=== PATIENT | male | born 1980 | race Caucasian/White ===

== ENCOUNTER 2022-03-31 11:09 | Emergency (ER) | payer SELFPAY ==
[2022-03-31 11:46] VITALS: BP 138/97; PULSE 109; RESP 18; TEMP 99; BMI 29.2
[2022-03-31] MEDS ORDERED: ACETAMINOPHEN 500 MG TABLET (FP) PO ONE (12:53)
[2022-03-31] MEDS ORDERED: CYCLOBENZAPRINE HCL 5 MG TABLET PO ONE (12:55)
[2022-03-31] MEDS ORDERED: CYCLOBENZAPRINE HCL 10 MG TABLET (FP) ONE (13:05)
[2022-03-31] MEDS ORDERED: ACETAMINOPHEN 325 MG TABLET (FP) ONE (13:05)
[2022-03-31] MEDS ORDERED: diazePAM 5 MG TABLET PO ONE (13:38)
[2022-03-31] MEDS ORDERED: KETOROLAC TROMETHAMINE 30 MG/1 ML VIAL IM ONE (13:38)
[2022-03-31] MEDS ORDERED: KETOROLAC TROMETHAMINE 15 MG/ML VIAL ONE (13:40)
[2022-03-31] MEDS ORDERED: diazePAM 5 MG TABLET ONE (13:40)
== END 2022-03-31 15:20 | disposition home or self-care (01) ==
LOC: JERFT 11:09
PROC: 3E0233Z Introduction of Anti-inflammatory into Muscle, Percutaneous Approach (ICD-10-PCS; principal; 2022-03-31)
DX: M76.00 Gluteal tendinitis, unspecified hip (principal); M54.16 Radiculopathy, lumbar region
CPT/HCPCS: 99284-25